=== PATIENT | female | born 1975 | race Caucasian/White ===

== ENCOUNTER 2017-01-25 20:27 | Emergency (ER) | payer SELFPAY ==
[~2017-01-25] VITALS: Ht 170.2 cm; Wt 81.0 kg
[~2017-01-25 20:27] MED LIST: ARIP10TA9 PO; CYCL-331 PO; HYDR1TAB10 PO; NAPR-683 PO; SULF1TAB24 PO
[2017-01-25] MEDS ORDERED: IV NORMAL SALINE 1,000ML 1,000 ML IV SCH (21:30)
[2017-01-25] MEDS ORDERED: ONDANSETRON PF 4 MG/2 ML VIAL. IV ONE (22:00)
[2017-01-25 23:10] LABS: BASO % 0 % (0-3); EOS # 0.4 x10^3/uL (0.0-0.7); EOS % 2 % (0-3); HEMATOCRIT 37.7 % (36.0-47.0); LYMPH # 3.1 x10^3/uL (1.0-4.8); LYMPH % 21 % (24-48); MEAN CORPUSCULAR HEMOGLOBIN 32 pg (25-35); MEAN CORPUSCULAR HGB CONC 34 g/dL (31-37); MEAN CORPUSCULAR VOLUME 92 fL (79-100); MONO # 0.9 x10^3/uL (0.0-1.1); MONO % 6 % (0-9); NEUT # 10.5 x10^3uL (1.8-7.7); NEUT % 71 % (31-73); PLATELET COUNT 377 x10^3/uL (140-400); RED BLOOD COUNT 4.09 x10^6/uL (3.50-5.40); RED CELL DISTRIBUTION WIDTH 13.4 % (11.5-14.5); WHITE BLOOD COUNT 14.9 x10^3/uL (4.0-11.0)
[2017-01-25 23:21] LABS: AMPHETAMINE/METHAMPHETAMINE POS (NEG); BARBITURATES NEG (NEG); BENZODIAZEPINES NEG (NEG); CANNABINOIDS POS (NEG); COCAINE NEG (NEG); METHADONE NEG (NEG); OPIATES POS (NEG); PHENCYCLIDINE NEG (NEG)
[2017-01-25 23:25] LABS: ALBUMIN 2.8 g/dL (3.4-5.0); ALBUMIN/GLOBULIN RATIO 0.8 (1.0-1.7); CALCIUM 8.4 mg/dL (8.5-10.1); GFR 61.4; TOTAL BILIRUBIN 0.1 mg/dL (0.2-1.0); TOTAL PROTEIN 6.5 g/dL (6.4-8.2)
[2017-01-25 23:31] LABS: COLOR,URINE YELLOW
[2017-01-25 23:32] LABS: AMORPHOUS SEDIMENT,UR PRESENT /HPF; BACTERIA,URINE MOD /HPF (0-FEW); BILIRUBIN,URINE NEG (NEG); CLARITY,URINE CLOUDY; GLUCOSE,URINE NEG (NEG); NITRITE,URINE POS (NEG); RBC,URINE 0 /HPF (0-2); SQUAMOUS EPITHELIAL CELL,UR OCC /LPF; UROBILINOGEN,URINE 0.2 mg/dL (0.2 mg/dL); WBC,URINE OCC /HPF (0-4)
[2017-01-26] MEDS ORDERED: IV NORMAL SALINE 1,000ML 1,000 ML IV SCH (00:30)
[2017-01-26] MEDS ORDERED: CLINDAMYCIN 900MG PREMIX 50 ML IV ONE (00:30)
[2017-01-26] MEDS ORDERED: KETOROLAC 30 MG/ML VIAL. IV ONE (00:30)
[2017-01-26] MEDS ORDERED: ONDA4TAB10 PO (00:44)
[2017-01-26] MEDS ORDERED: CLIN300C8 PO (00:44)
[2017-01-26 00:55] VITALS: BP 129/84
--- NOTE | 2017-01-26 00:58 | PHYS DOC ---
General Chief Complaint: INSECT BITE Stated Complaint: INSECT BITE, NAUSEA Time Seen by MD: 20:31 Source: patient Exam Limitations: clinical condition, intoxication Problems: History of Present Illness Initial Comments Patient is a 41-year-old female who comes to the ED complaining of an insect bite. On arrival patient appears to be altered as if intoxicated. No EtOH odor patient denies any substance abuse. She is drowsy and somewhat lethargic slurring words but oriented 3 remaining awake and in no distress. Patient is a poor/vague historian, she is uncertain how long ago she first noticed any abnormal findings on her right leg. She is able to recall that it started off as a vesicle which over time did drain some "pus" and then fell off. " Now there is a hole in my leg and it just keeps getting bigger." She states that at times it is painful also stating she has whole body pain, and complains of some nausea no vomiting. A friend is with her states she has had decreased energy the past few days. I specifically stated to the patient that she appeared to be altered and question her as to whether or not she had taken anything prior to coming to the emergency department. She adamantly denied taking any prescription or illicit substances recently and outside of my presence did admit to the RN that she uses marijuana. ED vital signs are normal. Tetanus status is reportedly up-to-date. Onset: other (uncertain) Severity: moderate Pain/Injury Location: right leg Method of Injury: unknown (patient assumes insect bite) Modifying Factors: worse with jarring, worse with movement, improves with rest Allergies: Coded Allergies: Penicillins (Unverified Allergy, Intermediate, rash, 05/31/14) Past Medical History Medical History: other (GERD, anxiety) Surgical History: noncontributory, other Family History Significant Family History: no pertinent family hx Social History Smoker: cigarettes Alcohol: occasionally Drugs: marijuana Review of Systems Constitutional: denies chills, denies diaphoresis, denies fever, malaise Respiratory: denies cough, denies shortness of breath, denies wheezing Cardiovascular: denies chest pain, denies palpitations, denies syncope Gastrointestinal: denies abdominal pain, denies diarrhea, nausea, denies vomiting Genitourinary: denies discharge, denies dysuria, denies frequency, denies hematuria Musculoskeletal: see HPI Skin: see HPI Psychiatric/Neurological: denies numbness, denies paresthesia, denies seizure, denies tingling, denies weakness Physical Exam General Appearance: no apparent distress (appears very relaxed and drowsy, disheveled) HEENT: PERRL/EOMI, normal ENT inspection, pharynx normal Neck: non-tender, supple Cardiovascular/Respiratory: regular rate, rhythm, normal peripheral pulses, normal breath sounds, no respiratory distress Back: no CVA tenderness, no vertebral tenderness Legs: right leg other (lateral aspect of the distal right upper le.5 cm ulceration approximately 1 cm in depth with 1 cm halo of erythema at the border no discharge consistent with probable brown recluse spider bite. The area is tender and slightly warm nonfluctuant no foreign bodies and no involvement of the right knee joint itself. Appears to extend into the muscle layer) Neurologic/Tendon: normal sensation, normal motor functions, normal tendon functions, responds to pain, no evidence tendon injury Psychiatric: alert, oriented x 3, lethargic (appears altered or intoxicated) Skin: normal color, warm/dry (right leg as described above) Orders, Labs, Meds Great difficulty obtaining intravenous access as well as blood specimens. Upper extremity venous structures are grossly scarred and fibrotic and have the appearance of repeated intravenous access likely for drug abuse. Lab evaluation to rule out coagulopathy as well as hemolytic anemia or sepsis secondary to brown recluse spider bite fairly unremarkable. Hemoglobin 13, white blood cells 14.9, PT 12.2 otherwise coagulation studies normal and d- dimer 1.15 likely resultant from ulceration tissue damage itself. Urine drug screen positive for opiates, methamphetamine, and cannabinoids The patient will need surgical removal of the ulceration, [facility] contact information given to the patient. She was advised to discontinue substance abuse and clindamycin given empirically. Signs and symptoms to monitor as well as urgent indications to return to the department discussed and the patient's questions were answered she expressed understanding of the treatment plan. Impressions: Altered mental status/intoxication Right leg wound consistent with probable brown recluse spider bite. Elevated d-dimer likely second above Methamphetamine, opiates, and cannabinoids abuse. Departure Time of Disposition: 00:55 Disposition: 01 HOME, SELF-CARE Diagnosis: probable brown recluse bite RLE, methamph/marijuan Condition: STABLE Patient Instructions: Brown Recluse Spider Bite, Epni-ps-Nbpt, Marijuana Abuse and Chemical Dependency, Methamphetamine Abuse, Complications Additional Instructions: Please review the patient education materials given by ED staff. Discontinue substance abuse, seek medical assistance if necessary. Aggressive hydration with Gatorade or water. [id number] Tylenol and ibuprofen as needed. Prescription: Clindamycin You will need to follow-up with an orthopedic surgeon. You may choose to follow- up with: [facility] [phone] call Friday to schedule next available appointment. Return to ED with new or changing symptoms. GAYATRI ARROYO DO Jan 26, 2017 00:58
== END 2017-01-26 01:00 | disposition home or self-care (01) ==
LOC: ER 20:27
DX: F15.10 Other stimulant abuse, uncomplicated (principal); S80.861A Insect bite (nonvenomous), right lower leg, initial encounter; F12.10 Cannabis abuse, uncomplicated; F17.210 Nicotine dependence, cigarettes, uncomplicated; K21.9 Gastro-esophageal reflux disease without esophagitis; F41.9 Anxiety disorder, unspecified; W57.XXXA Bitten or stung by nonvenomous insect and other nonvenomous arthropods, initial encounter; Y93.89 Activity, other specified; Y99.8 Other external cause status; Y92.89 Other specified places as the place of occurrence of the external cause
CPT/HCPCS: 36415; 80053; 80307; 81001; 82550; 83605; 85025; 85379; 85610; 85730; 87040; 87086; 87186; 96361; 96365; 96375; 99285; G0480; J1885; J2405; J3490; G0479; J7030

== ENCOUNTER 2017-07-25 13:52 | Inpatient (IN) | payer SELFPAY ==
[~2017-07-25] VITALS: Ht 170.2 cm; Wt 80.3 kg
[~2017-07-25 13:52] MED LIST changes: +CLIN300C8 PO; +ONDA4TAB10 PO
[2017-07-25] MEDS ORDERED: VANCOMYCIN PER PHARMACY MC PRN (14:45)
[2017-07-25] MEDS ORDERED: VANCOMYCIN 2 GM in IV NORMAL SALINE 500ML 500 ML IV ONE (15:00)
[2017-07-25] MEDS ORDERED: IV NORMAL SALINE 1,000ML 1,000 ML IV ONE (15:00)
--- NOTE | 2017-07-25 15:00 | RAD ---
EXAM: CHEST 1 VIEW History: Chest pain, leg swelling, redness COMPARISON: 06/21/2008 TECHNIQUE: Single portable radiograph of the chest FINDINGS: The cardiac silhouette is unremarkable. The lungs are clear bilaterally. The costophrenic sulci are clear and well demarcated. IMPRESSION: No radiographic evidence of an acute cardiopulmonary process. Electronically signed by: Ovidio Lindsay MD (07/25/2017 2:56 PM) [id number]
--- NOTE | 2017-07-25 15:41 | EKG ---
[address] [address] Test Date: 2017-07-25 Test Time: 15:35:48 Pat Name: LISBET HERRERA Department: Room: Gender: F Relish Maker: LIZETH : 1975 Requested By: GERARD REED Order Number: [id number] Reading MD: Measurements Intervals [place] Rate: 72 P: 21 WY: 116 QRS: -6 QRSD: 82 T: 8 QT: 374 QTc: 411 Interpretive Statements SINUS RHYTHM LEFTWARD AXIS QRS(T) CONTOUR ABNORMALITY CONSIDER ANTEROLATERAL MYOCARDIAL DAMAGE POSSIBLY ABNORMAL ECG RI6.01 No previous ECG available for comparison
--- NOTE | 2017-07-25 16:06 | RAD ---
Right lower extremity venous doppler ultrasound Indication: Right leg redness and swelling. Technique: Color Doppler, grayscale, and spectral waveform analysis is used to evaluate the right femoral and popliteal veins. Findings: No evidence of deep venous thrombosis. Normal response to augmentation, normal compressibility and normal phasicity is demonstrated. Visualized calf veins are patent. Additional scanning performed at the area of more severe focal pain in the medial calf. No focal fluid collection identified here. There is soft tissue edema. Lymph nodes are identified in the groin and upper thigh on the right. Impression: Negative for deep venous thrombosis Electronically signed by: Joselito Lozano MD (07/25/2017 4:03 PM) [facility]
--- NOTE | 2017-07-25 16:22 | PHYS DOC ---
Past History Past Medical History: Anxiety, GERD, Other Past Surgical History: Tubal ligation, Other Alcohol Use: Rarely Drug Use: Cocaine, Marijuana, Methamphetamine Adult General Chief Complaint Chief Complaint: LOWER EXT PAIN HPI HPI Patient is a 41 YO F WITH RIGHT LEG PAIN AND SWELLING SUBJECTIVE FEVER PAIN SEVERE DULL RIGHT CALF AREA RADIATES TO FOOT SHE SHOT METHAMPHETAMINE IN THE AREA LAST WEEK AND HAS HAD WORSENING SYMTPOMS X ONE WEEK. ALSO WOKE UP TODAY WITH A COUGH AND SOME CHEST PAIN ON THE RIGHT DESCRIBED "MY PLEURISY ACTING UP AGAIN" PT DOES NOT HAVE INSURANCE OR FOLLOW UP. Review of Systems Review of Systems Constitutional: SUBJECTIVE FEVER Eyes: Denies change in visual acuity, redness, or eye pain [] HENT: Denies nasal congestion or sore throat [] Respiratory: COUGH, NO SOB Cardiovascular: No additional information not addressed in HPI [] GI: NAUSEA All other systems were reviewed and found to be within normal limits, except as documented in this note. Current Medications Current Medications Current Medications Medications (Trade) Dose Ordered Sig/Char Start Time Stop Time Status Last Admin Dose Admin Fentanyl Citrate (Fentanyl 2ml Vial) 50 mcg 1X ONCE 07/25/17 15:00 07/25/17 15:01 DC Sodium Chloride 1,000 ml @ 1,000 mls/hr 1X ONCE 07/25/17 15:00 07/25/17 15:59 DC Vancomycin HCl (Vanco Per Pharmacy) 1 each PRN DAILY PRN 07/25/17 14:45 Vancomycin HCl 2 gm/Sodium Chloride 500 ml @ 250 mls/hr 1X ONCE 07/25/17 15:00 07/25/17 16:59 Allergies Allergies Allergies Coded Allergies Type Severity Reaction Last Updated Verified Penicillins Allergy Intermediate rash 07/25/17 No Physical Exam Physical Exam Constitutional: Well developed, well nourished, no acute distress, non-toxic appearance. [] HENT: Normocephalic, atraumatic, bilateral external ears normal, oropharynx moist, no oral exudates, nose normal. [] Eyes: PERRLA, EOMI, conjunctiva normal, no discharge. [] Neck: Normal range of motion, no tenderness, supple, no stridor. [] Cardiovascular: Mild tachycardia no murmurs noted Lungs & Thorax: Bilateral breath sounds clear to auscultation []there is mild chest wall tenderness to palpation noted on the right Abdomen: Bowel sounds normal, soft, no tenderness, no masses, no pulsatile masses. [] Skin: There is diffuse erythema tenderness warmth and induration of the right lower extremity from the mid calderon down to the foot. Pedal pulses intact. There is most prominent erythema medial aspect of the right O there is no obvious fluctuance there Back: No tenderness, no CVA tenderness. [] Extremities: No tenderness, no cyanosis, no clubbing, ROM intact, no edema. [] Neurologic: Alert and oriented X 3, normal motor function, normal sensory function, no focal deficits noted. [] Psychologic: Affect normal, judgement normal, mood normal. [] Current Patient Data Vital Signs Vital Signs Date Time Temp Pulse Resp B/P (MAP) Pulse Ox O2 Delivery O2 Flow Rate FiO2 07/25/17 13:52 98.1 97 16 99 Room Air EKG EKG []EKG shows a normal sinus rhythm at a rate of 72 there are no acute ischemic changes noted interpreted by me the time of encounter Radiology/Procedures Radiology/Procedures OMPARISON: 06/21/2008 TECHNIQUE: Single portable radiograph of the chest FINDINGS: The cardiac silhouette is unremarkable. The lungs are clear bilaterally. The costophrenic sulci are clear and well demarcated. IMPRESSION: No radiographic evidence of an acute cardiopulmonary process. Electronically signed by: Ovidio Lindsay MD (07/25/2017 2:56 PM) [id number] [] Impressions: Technique: Color Doppler, grayscale, and spectral waveform analysis is used to evaluate the right femoral and popliteal veins. Findings: No evidence of deep venous thrombosis. Normal response to augmentation, normal compressibility and normal phasicity is demonstrated. Visualized calf veins are patent. Additional scanning performed at the area of more severe focal pain in the medial calf. No focal fluid collection identified here. There is soft tissue edema. Lymph nodes are identified in the groin and upper thigh on the right. Impression: Negative for deep venous thrombosis Electronically signed by: Joselito Lozano MD (07/25/2017 4:03 PM) [facility] DICTATED AND SIGNED BY: JOSELITO LOZANO MD DATE: 07/25/17 3744 Course & Med Decision Making Course & Med Decision Making Pertinent Labs and Imaging studies reviewed. (See chart for details) []41-year-old female with a history of IV drug abuse who shot methamphetamine into her right leg several days ago who is presenting with cellulitis of the right lower extremity. Ultrasound was negative for DVT also of note there was no focal fluid collection identified on the ultrasound. Due to this I think we should start with IV antibiotics and ADMIT. Blood cultures were ordered IV vancomycin as well fentanyl for pain LEUKOCYTOSIS NOTED BP IS GOOD D/W DOROTEO ADMIT FOR IV ABX. Dragon Disclaimer Dragon Disclaimer This electronic medical record was generated, in whole or in part, using a voice recognition dictation system. Departure Departure: Impression: Primary Impression: Cellulitis of right lower extremity Disposition: ADMITTED INPATIENT Condition: STABLE Referrals: PCP,KRISTI (PCP) GERARD REED MD Jul 25, 2017 16:22
[2017-07-25 16:27] LABS: BASO # 0.2 x10^3/uL (0.0-0.2); BASO % 1 % (0-3); EOS # 0.5 x10^3/uL (0.0-0.7); EOS % 3 % (0-3); HEMATOCRIT 37.4 % (36.0-47.0); HEMOGLOBIN 12.8 g/dL (12.0-15.5); LYMPH # 2.6 x10^3/uL (1.0-4.8); LYMPH % 18 % (24-48); MEAN CORPUSCULAR HEMOGLOBIN 32 pg (25-35); MEAN CORPUSCULAR HGB CONC 34 g/dL (31-37); MEAN CORPUSCULAR VOLUME 92 fL (79-100); MONO # 1.1 x10^3/uL (0.0-1.1); MONO % 8 % (0-9); NEUT # 9.7 x10^3uL (1.8-7.7); NEUT % 69 % (31-73); PLATELET COUNT 324 x10^3/uL (140-400); RED BLOOD COUNT 4.06 x10^6/uL (3.50-5.40); RED CELL DISTRIBUTION WIDTH 13.5 % (11.5-14.5); WHITE BLOOD COUNT 14.1 x10^3/uL (4.0-11.0)
[2017-07-25 16:40] LABS: ALBUMIN 2.7 g/dL (3.4-5.0); ALBUMIN/GLOBULIN RATIO 0.7 (1.0-1.7); CALCIUM 8.3 mg/dL (8.5-10.1); CREATININE 0.9 mg/dL (0.6-1.0); GFR 69.3; POTASSIUM 3.9 mmol/L (3.5-5.1); TOTAL BILIRUBIN 0.2 mg/dL (0.2-1.0); TOTAL PROTEIN 6.4 g/dL (6.4-8.2)
[2017-07-25 18:10] VITALS: BP 135/91
[2017-07-25] MEDS ORDERED: diphenhydrAMINE 50 MG/ML VIAL IVP ONE (18:45)
[2017-07-25] MEDS ORDERED: diphenhydrAMINE HCL 25 MG CAPSULE PO PRN (18:45)
[2017-07-25] MEDS ORDERED: HYDROCORTISONE SOD SUCC/PF 100 MG/2 ML VIAL. IV ONE ×2 (18:45)
[2017-07-25] MEDS: IV NORMAL SALINE 1,000ML 1,000 ML IV SCH (19:40)
--- NOTE | 2017-07-25 19:40 | HP ---
ADMIT DATE: 07/25/2017 HISTORY OF PRESENT ILLNESS: The patient is a 41-year-old female patient who came to the Emergency Room complaining of right leg pain, swelling and redness and subjective fever. The pain is severe, dull, and involving the right calf area, radiating down to the foot. She shot methamphetamine in the area last week and has had worsening symptoms for 1 week now. She also woke up this morning with a cough and some chest pain ____ acting up again. She was extensively investigated in the Emergency Room, was found to have leukocytosis. Her chest x-ray was unremarkable and she has had Doppler ultrasound of the right lower extremity, which was negative. The patient was admitted with cellulitis of the right lower extremity, polysubstance abuse and she has history of hepatitis C. PAST MEDICAL HISTORY: Significant for, 1. Hepatitis C. 2. Polysubstance abuse including methamphetamine and cocaine. PAST SURGICAL HISTORY: Significant for left knee arthroscopic surgery for ACL rupture. ALLERGIES: SHE IS ALLERGIC TO PENICILLIN. MEDICATIONS: She is normally on no medication except [id number] ibuprofen. FAMILY HISTORY: She has 2 brothers older and 1 younger. One sister she does not know. Her father at the age of 67 because of stomach cancer and mother is still alive and healthy. SOCIAL HISTORY: She is and has 3 daughters and one son. She continued to smoke cigarettes, does not drink alcohol, and uses methamphetamine and cocaine, has been using it for a long time. REVIEW OF SYSTEMS: As per history of present illness. PHYSICAL EXAMINATION: GENERAL: When examining her, the patient started itching severely and turning red as the vancomycin was infusing; however, the patient has no pallor, jaundice, cyanosis or thyromegaly. No jugular venous distension. No lower limb edema. VITAL SIGNS: Her heart rate was 89, blood pressure 135/91, temperature was 97.8, respiratory rate 20, and oxygen saturation was 99% on room air. HEENT: Normocephalic, atraumatic. NECK: Supple. HEART: Showed normal first and second sounds. No gallop, rub or murmur. CHEST: Clear to auscultation. No crepitation or rhonchi. ABDOMEN: Distended, soft, nontender. NEUROLOGIC: She is awake, alert, responding appropriately. Cranial nerves intact. He moves extremities without difficulty. She ambulates without assistance or assistive devices. EXTREMITIES: Showed no clubbing or cyanosis. She has marked redness, swelling and tenderness of her right leg compared to the left. LABORATORY DATA: Showed a white cell count of 14,100, hemoglobin 12.8, hematocrit 37.4, MCV 92, and platelet count 324,000. Her chemistry showed a serum sodium 141, potassium 3.9, chloride 105, bicarbonate 31, anion gap of 5, BUN 11, creatinine 0.9, estimated GFR was 69 mL per minute. Her glucose 111, calcium was 8.3. Total bilirubin, AST, ALT, alkaline phosphatase were normal. Her total protein was 6.4, albumin was 2.7. Her test was negative. She did have a chest x-ray which was unremarkable which showed no radiographic evidence of an acute cardiopulmonary process and her venous Doppler ultrasound was negative for deep vein thrombosis. ASSESSMENT AND PLAN: Unfortunately, the patient has allergic reaction as she was turning red in front of me, so we will treat her with Benadryl and hydrocortisone and probably switch the antibiotic to Zyvox at least initially. LOTTIE SADLER MD DR: YAA/phill JOB#: [id number] / [id number]
[2017-07-25] MEDS ORDERED: LACTOBACILLUS RHAMNOSUS GG 1 CAPSULE. PO SCH (21:00)
[2017-07-25] MEDS: HYDROCORTISONE SOD SUCC/PF 100 MG/2 ML VIAL. IV SCH (21:20)
[2017-07-25] MEDS: CLINDAMYCIN 600MG PREMIX 50 ML IV SCH (21:21)
[2017-07-25 22:14] VITALS: BP 123/86
[2017-07-26] MEDS: IV NORMAL SALINE 1,000ML 1,000 ML IV SCH (00:05)
[2017-07-26] MEDS ORDERED: VANCOMYCIN 1.25 GM in IV NORMAL SALINE 250ML 250 ML IV SCH (05:00)
[2017-07-26] MEDS: CLINDAMYCIN 600MG PREMIX 50 ML IV SCH (05:06)
[2017-07-26] MEDS: HYDROCORTISONE SOD SUCC/PF 100 MG/2 ML VIAL. IV SCH (05:07)
[2017-07-26 05:16] VITALS: BP 122/79
== END 2017-07-26 07:45 | disposition left against medical advice (07) | DRG 603 ==
LOC: ER 13:52 → 1 SOUTH 16:40
PROVIDERS: ADMIT Internal Medicine; ATTEND Internal Medicine
DX: L03.115 Cellulitis of right lower limb (principal); K21.9 Gastro-esophageal reflux disease without esophagitis; F41.9 Anxiety disorder, unspecified; F17.210 Nicotine dependence, cigarettes, uncomplicated; B19.20 Unspecified viral hepatitis C without hepatic coma; F15.10 Other stimulant abuse, uncomplicated; F14.10 Cocaine abuse, uncomplicated; T78.40XA Allergy, unspecified, initial encounter; X58.XXXA Exposure to other specified factors, initial encounter; Z98.51 Tubal ligation status; Z88.0 Allergy status to penicillin; Z80.0 Family history of malignant neoplasm of digestive organs
CPT/HCPCS: 36415; 71045; 80053; 84702; 85025; 87040; 93005; 93971; 96365; 96375; J1200; J3010; J3370; J3490; J7040; Q0163; 99285-25; J7030

== ENCOUNTER 2017-08-02 00:48 | Inpatient (IN) | payer SELFPAY ==
[~2017-08-02] VITALS: Ht 170.2 cm; Wt 86.0 kg
--- NOTE | 2017-08-02 00:54 | ED.ADGEN ---
Past History Past Medical History: Anxiety, GERD, Other Past Surgical History: Tubal ligation, Other Smoking: Cigarettes Alcohol Use: Rarely Drug Use: Cocaine, Marijuana, Methamphetamine Adult General Chief Complaint Chief Complaint " I should have stayed the other day... but did not.. and now my leg is much worse...hurts and swollen... and my Lt hand is swollen.. I have not used any drugs for two days... I should have stayed..." HPI HPI Patient is a 42 year old female who presents with above hx and complaints of cellulitis and edema complaints of Lt. hand and Rt. leg. Patient also complaints of some generalized chest pain. Subjective fever and chills. Patient has history of hepatitis. Patient denies history of HIV.. Pt. previously admitted for tx of her cellulitis, but left AMA on 07/25. Pt. states Tetanus is up to date as of one year ago. Pt. does have a history of IV polysubstance abuse. Patient does have a history of MRSA. Patient denies any history of travel or specific ill contacts. Review of Systems Review of Systems Constitutional: Complaints of fever or chills [] Eyes: Denies change in visual acuity, redness, or eye pain [] HENT: Denies nasal congestion or sore throat [] Respiratory: Denies cough or shortness of breath [] Cardiovascular: No additional information not addressed in HPI [] GI: Denies abdominal pain, nausea, vomiting, bloody stools or diarrhea [] : Denies dysuria or hematuria [] Musculoskeletal: Denies back pain or joint pain. Pt. complaints of right leg pain and left hand pain Integument: Complaints of rash or skin lesions [] Neurologic: Denies headache, focal weakness or sensory changes [] Endocrine: Denies polyuria or polydipsia [] All other systems were reviewed and found to be within normal limits, except as documented in this note. Family History Family History Non-contributory Current Medications Current Medications See Nursing for home meds. Allergies Allergies Allergies Coded Allergies Type Severity Reaction Last Updated Verified vancomycin Allergy Severe 07/25/17 Yes Penicillins Allergy Intermediate rash 07/25/17 No Physical Exam Physical Exam Constitutional: Moderately acute distress, non-toxic appearance. [] HENT: Normocephalic, atraumatic, bilateral external ears normal, oropharynx moist, no oral exudates, nose normal. [] Eyes: PERRLA, EOMI, conjunctiva normal, no discharge. [] Neck: Normal range of motion, no tenderness, supple, no stridor. [] Cardiovascular:Heart rate regular rhythm, no murmur [] Lungs & Thorax: Bilateral breath sounds scattered wheezes on auscultation [] Abdomen: Bowel sounds normal, soft, no tenderness, no masses, no pulsatile masses. [] Skin: Warm, dry, no erythema, no rash. [] Except cellulitis in Rt. calf and Lt arm. Multiple old IV scars. Back: No tenderness, no CVA tenderness. [] Extremities: No tenderness, no cyanosis, no clubbing, ROM intact, Lt. hand and Rt leg edema. [] Neurologic: Alert and oriented X 3, normal motor function, normal sensory function, no focal deficits noted. [] Psychologic: Affect anxious, judgement normal, mood depressed. ] Current Patient Data Vital Signs Vital Signs Date Time Temp Pulse Resp B/P (MAP) Pulse Ox O2 Delivery O2 Flow Rate FiO2 08/02/17 00:50 98.4 90 20 99 Room Air EKG EKG I interpretation of EKG shows a sinus rhythm at 87 bpm. No findings of acute morphology.[] Radiology/Procedures Radiology/Procedures My interpretation of chest x-ray shows no large infiltrate or acute cardio pulmonary changes.. Chest x-ray morphology is similar to chest x-ray on 2017 is cardiomegaly[] Course & Med Decision Making Course & Med Decision Making Pertinent Labs and Imaging studies reviewed. (See chart for details)- Lt. Ext/- J placement- Indications-Multiple sticks for IV by multiple nurses. Unable to get IV or lab draw- Pt. Lt Ext. Jugular - prepped with repeat cleaning with alcohol swabs. Pt placed in declined position and external jugular identified and placed a 20- gauge Angiocath. Labs collected. OpSite placed. Discussed presentation, testing and tx. plan with Dr. Evans- will admit for further eval and tx. [] Final Impression Final Impression 1. Chest Pain 2. Cellulitis 3. Hx of Polysubstance Abuse[] 4. Hx. of Hept. C 5. Hx. of Anxiety Disorder 6. Leukocytosis 7. Malnutrition 8. Elevated D-dimer Dragon Disclaimer Dragon Disclaimer This electronic medical record was generated, in whole or in part, using a voice recognition dictation system. CHRIS HOPE MD Aug 02, 2017 00:54
[2017-08-02] MEDS ORDERED: ASPIRIN 81 MG TAB.CHEW PO ONE (01:45)
[2017-08-02] MEDS ORDERED: IV RINGERS SOLUTION,LACTATED 1,000 ML IV SCH ×2 (01:45→09:00)
[2017-08-02] MEDS ORDERED: ENOXAPARIN ** NOTE DOSE ** SYRINGE SQ ONE (01:45)
[2017-08-02] MEDS ORDERED: KETOROLAC 60 MG/2 ML VIAL. IM ONE (01:45)
[2017-08-02] MEDS ORDERED: cefTRIAXone IM 1 GM VIAL IM ONE (01:45)
[2017-08-02 02:32] LABS: BARBITURATES NEG (NEG); BENZODIAZEPINES NEG (NEG); CANNABINOIDS POS (NEG); COCAINE NEG (NEG); METHADONE NEG (NEG); OPIATES NEG (NEG); PHENCYCLIDINE NEG (NEG)
[2017-08-02 02:41] LABS: BILIRUBIN,URINE NEG (NEG); CLARITY,URINE HAZY; COLOR,URINE YELLOW; GLUCOSE,URINE NEG (NEG)
[2017-08-02 02:42] LABS: BASO # 0.2 x10^3/uL (0.0-0.2); BASO % 1 % (0-3); EOS # 0.8 x10^3/uL (0.0-0.7); EOS % 6 % (0-3); HEMATOCRIT 40.4 % (36.0-47.0); LYMPH # 3.1 x10^3/uL (1.0-4.8); LYMPH % 21 % (24-48); MEAN CORPUSCULAR HEMOGLOBIN 32 pg (25-35); MEAN CORPUSCULAR HGB CONC 35 g/dL (31-37); MEAN CORPUSCULAR VOLUME 91 fL (79-100); MONO # 1.1 x10^3/uL (0.0-1.1); MONO % 8 % (0-9); NEUT # 9.5 x10^3uL (1.8-7.7); NEUT % 65 % (31-73); PLATELET COUNT 413 x10^3/uL (140-400); RED BLOOD COUNT 4.44 x10^6/uL (3.50-5.40); RED CELL DISTRIBUTION WIDTH 13.4 % (11.5-14.5); WHITE BLOOD COUNT 14.7 x10^3/uL (4.0-11.0)
[2017-08-02 02:42] LABS: BACTERIA,URINE FEW /HPF (0-FEW); NITRITE,URINE NEG (NEG); RBC,URINE OCC /HPF (0-2); SQUAMOUS EPITHELIAL CELL,UR FEW /LPF; UROBILINOGEN,URINE 0.2 mg/dL (0.2 mg/dL); WBC,URINE OCC /HPF (0-4)
[2017-08-02 02:51] LABS: ALBUMIN 2.7 g/dL (3.4-5.0); ALK PHOS 108 U/L (46-116); ALT (SGPT) 16 U/L (14-59); ANION GAP 8 (6-14); AST (SGOT) 11 U/L (15-37); BLOOD UREA NITROGEN 10 mg/dL (7-20); CALCIUM 8.1 mg/dL (8.5-10.1); CARBON DIOXIDE 28 mmol/L (21-32); CHLORIDE 105 mmol/L (98-107); DIRECT BILIRUBIN < 0.1 mg/dL (0.0-0.2); GFR 61.1; GLUCOSE 88 mg/dL (70-99); LIPASE 167 U/L (73-393); MAGNESIUM 2.1 mg/dL (1.8-2.4); POTASSIUM 3.8 mmol/L (3.5-5.1); SODIUM 141 mmol/L (136-145); TOTAL BILIRUBIN 0.2 mg/dL (0.2-1.0); TOTAL PROTEIN 6.6 g/dL (6.4-8.2)
[2017-08-02 02:51] LABS: AMPHETAMINE/METHAMPHETAMINE POS (NEG)
[2017-08-02] MEDS ORDERED: KETOROLAC 30 MG/ML VIAL. IM PRN (03:30)
[2017-08-02 04:10] VITALS: BP 132/99
[2017-08-02] MEDS: LORazepam 0.5 MG TABLET PO PRN ×3 (08:03→23:01)
[2017-08-02] MEDS: NICOTINE 21MG PATCH. TD SCH (08:06)
--- NOTE | 2017-08-02 08:28 | RAD ---
AP portable chest radiograph 08/02/2017 Clinical History: Chest pain. An AP erect portable digital radiograph of the chest was obtained. Comparison study is dated 07/25/2017. The cardiac and mediastinal silhouettes are within normal limits in size and configuration. No acute pulmonary infiltrate is seen. No pleural effusion or pneumothorax is noted. The osseous structures are unchanged. Impression: No acute abnormality is seen. Electronically signed by: Eric Huynh MD (08/02/2017 8:24 AM) [facility]
[2017-08-02] MEDS ORDERED: cefTRIAXone IM 1 GM VIAL IM SCH (09:00)
[2017-08-02] MEDS: ASPIRIN 81 MG TAB.CHEW PO SCH (09:10)
[2017-08-02] MEDS: LACTOBACILLUS RHAMNOSUS GG 1 CAPSULE. PO SCH ×2 (09:10→21:13)
[2017-08-02] MEDS: ENOXAPARIN ** NOTE DOSE ** SYRINGE SQ SCH ×2 (09:11→21:14)
[2017-08-02] MEDS: KETOROLAC 30 MG/ML VIAL. IV PRN ×3 (09:39→23:01)
[2017-08-02 12:25] VITALS: BP 142/99
--- NOTE | 2017-08-02 13:01 | RAD ---
Right lower extremity venous duplex study 08/02/2017 Clinical History: Right leg swelling. Technique: Using a combination of real time ultrasound imaging and color-flow and pulse Doppler imaging techniques along with graded compression and augmentation, duplex evaluation of the deep venous system of the right lower extremity was performed. Multiple images were obtained. Findings: There is no sonographic evidence of deep venous thrombosis involving the visualized deep venous structures of the right lower extremity. Impression: Negative study. Electronically signed by: Eric Huynh MD (08/02/2017 12:57 PM) [facility]
--- NOTE | 2017-08-02 15:15 | RAD ---
NUCLEAR MEDICINE VENTILATION PERFUSION SCAN History: Chest pain, elevated d-dimer. Comparison: AP chest, earlier same day. Technique: Patient is ventilated with 13.7 mCi of xenon-133 gas and anterior and posterior initial breath-hold, equilibrium, and washout phase images of the lungs are acquired. Perfusion portion performed after intravenous administration of 5.4 mCi Technetium 99m MAA. Multiple projection planar images of the lungs were obtained. Findings: The initial breath-hold ventilation images demonstrated homogeneous distribution of tracer. No retention of tracer is appreciated on the washout phase images. Perfusion images demonstrate no mismatched segmental perfusion defects. There is nonsegmental linear defect noted on the perfusion RPO and LPO images. This defect is not seen on the other views. Question whether this may be artifactual. IMPRESSION: Low probability for pulmonary embolus. Electronically signed by: Farhat Hopkins MD (08/02/2017 3:12 PM) [facility] [place]
[2017-08-02] MEDS: oxyCODONE IR 5 MG TABLET PO PRN ×2 (15:23→21:31)
[2017-08-02 15:50] VITALS: BP 133/92
--- NOTE | 2017-08-02 16:05 | HP ---
ADMIT DATE: 08/02/2017 HISTORY OF PRESENT ILLNESS: The patient came again to the Emergency Room complaining of redness, swelling of her both upper extremities and right lower extremity. She left last time against medical advice to continue using her amphetamine claiming that she has not used any drugs for the last 2 days. She was evaluated in the Emergency Room, was again found to have leukocytosis and cellulitis of the right and left upper extremities and right lower extremity and apparently did receive IV Flagyl and ceftriaxone. I am not sure that this should cover all potential organisms. PAST MEDICAL HISTORY: Significant for hepatitis C, polysubstance abuse including amphetamine, methamphetamine and cocaine as well as marijuana. PAST SURGICAL HISTORY: Significant for left knee arthroscopic surgery for ACL rupture. ALLERGIES: She is allergic to PENICILLIN. MEDICATIONS: She is normally on no medication except [id number] ibuprofen. FAMILY HISTORY: She has 2 brothers older and 1 younger, 1 sister. She does not know her father at the age of 67 because of stomach cancer. Mother is still alive and healthy. SOCIAL HISTORY: She is , has 3 daughters and 1 son. She continued to smoke cigarette, does not drink alcohol or use methamphetamine; and cocaine, has been using it for a long time. REVIEW OF SYSTEMS: As per history of present illness. PHYSICAL EXAMINATION: GENERAL: On arrival to the Emergency Room, she looked well and was clearly in no apparent respiratory distress. VITAL SIGNS: Her heart rate was 90, blood pressure 163/82, temperature was 98.4, respiratory rate 20, and oxygen saturation was 99% on room air. HEAD, EYES, EARS, NOSE AND THROAT: Showed normocephalic, atraumatic. NECK: Supple. HEART: Showed normal first and second heart sounds. No gallop, rub or murmur. CHEST: Clear to auscultation. No crepitation or rhonchi. ABDOMEN: Distended, soft, nontender. NEUROLOGIC: She was awake, alert, responding appropriately. All cranial nerves intact. EXTREMITIES: She moves extremities without difficulty. SKIN: Showed that she has cellulitis of the right calf, left arm and multiple old IV scars. DIAGNOSTIC AND LABORATORY DATA: Her EKG showed that she was in sinus rhythm at 87 beats per minute with no finding of acute morphology. Her chest x-ray showed no lung infiltrate or acute cardiopulmonary disease. Her labs showed that her white cell count was 14,700, hemoglobin 14, hematocrit 40, MCV 91, and platelet count 413,000. Her chemistry showed serum sodium 141, potassium 3.8, chloride 105, bicarbonate 28, anion gap of 8, BUN 10, creatinine 1, estimated GFR was 61 mL per minute. Her glucose was 88, calcium was 8.1, magnesium was 2.1. Total bilirubin, AST, ALT, alkaline phosphatase were normal. Total protein was 6.6, albumin 2.7. TSH was 2.37. Her prothrombin time was 9.3, INR of 0.9, aPTT was 23. D-dimer was 1.99. Urinalysis was unremarkable. Toxic screen was positive for amphetamine, methamphetamine and cannabinoids. ASSESSMENT AND PLAN: In summary, this is a 42-year-old female patient who was admitted with cellulitis of her both upper extremities and left lower extremity, polysubstance abuse, history of hepatitis C, anxiety disorder, and did have chest pain and elevated D-dimer. She was treated with Lovenox, and arrangement has been made for her to have a Doppler ultrasound of both lower and upper extremities. Venous Doppler ultrasound of the right upper extremity showed no sonographic evidence of deep vein thrombosis involving the visualized deep venous structure of the right lower extremity. Her upper extremity ultrasound is still pending at the time of this dictation. My plan is to continue with IV fluid. LOTTIE SADLER MD DR: YAA/phill JOB#: [id number] / [id number]
[2017-08-02 19:00] VITALS: BP 146/97
--- NOTE | 2017-08-02 19:32 | RAD ---
EXAM: Left upper extremity venous Doppler sonogram. HISTORY: Left hand swelling. TECHNIQUE: Wilks scale and color Doppler sonographic evaluation of the left upper extremity veins with spectral waveform analysis was performed. FINDINGS: There is normal color flow, normal compressibility and there are normal spectral waveforms in the common left upper extremity veins and right subclavian vein. The left internal jugular vein could not be assessed due to an overlying bandage IMPRESSION: No Doppler evidence of upper extremity venous thrombosis, with nonassessment of the left internal jugular vein due to an overlying bandage. Electronically signed by: Adela Barrios MD (08/02/2017 7:28 PM) [id number]
--- NOTE | 2017-08-02 19:34 | EKG ---
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
[2017-08-02] MEDS: LINEZOLID 600 MG TABLET PO SCH (21:13)
[2017-08-02 22:00] VITALS: BP 128/90
[2017-08-03 05:59] VITALS: BP 132/76
[2017-08-03] MEDS: oxyCODONE IR 5 MG TABLET PO PRN ×2 (07:26→15:33)
[2017-08-03 09:11] LABS: BASO # 0.1 x10^3/uL (0.0-0.2); BASO % 1 % (0-3); EOS # 0.6 x10^3/uL (0.0-0.7); EOS % 9 % (0-3); HEMATOCRIT 42.3 % (36.0-47.0); HEMOGLOBIN 14.2 g/dL (12.0-15.5); LYMPH # 2.1 x10^3/uL (1.0-4.8); LYMPH % 28 % (24-48); MEAN CORPUSCULAR HEMOGLOBIN 32 pg (25-35); MEAN CORPUSCULAR HGB CONC 34 g/dL (31-37); MEAN CORPUSCULAR VOLUME 94 fL (79-100); MONO # 0.5 x10^3/uL (0.0-1.1); MONO % 6 % (0-9); NEUT # 4.3 x10^3uL (1.8-7.7); NEUT % 57 % (31-73); PLATELET COUNT 306 x10^3/uL (140-400); RED BLOOD COUNT 4.51 x10^6/uL (3.50-5.40); RED CELL DISTRIBUTION WIDTH 13.7 % (11.5-14.5); WHITE BLOOD COUNT 7.5 x10^3/uL (4.0-11.0)
[2017-08-03] MEDS: cefTRIAXone IV Push 1 GM VIAL. IVP SCH (09:12)
[2017-08-03] MEDS: ASPIRIN 81 MG TAB.CHEW PO SCH (09:15)
[2017-08-03] MEDS: LACTOBACILLUS RHAMNOSUS GG 1 CAPSULE. PO SCH ×2 (09:16→20:53)
[2017-08-03] MEDS: LINEZOLID 600 MG TABLET PO SCH ×2 (09:16→20:53)
[2017-08-03] MEDS: ENOXAPARIN ** NOTE DOSE ** SYRINGE SQ SCH (09:17)
[2017-08-03] MEDS: NICOTINE 21MG PATCH. TD SCH (09:19)
[2017-08-03] MEDS: KETOROLAC 30 MG/ML VIAL. IV PRN ×2 (09:34→17:04)
[2017-08-03 09:46] LABS: ALBUMIN 2.7 g/dL (3.4-5.0); ALBUMIN/GLOBULIN RATIO 0.8 (1.0-1.7); CALCIUM 7.9 mg/dL (8.5-10.1); CREATININE 0.9 mg/dL (0.6-1.0); POTASSIUM 4.2 mmol/L (3.5-5.1); TOTAL BILIRUBIN 0.1 mg/dL (0.2-1.0)
[2017-08-03 10:30] VITALS: BP 135/80
[2017-08-03 15:04] VITALS: BP 138/93
[2017-08-03] MEDS ORDERED: ONDANSETRON ODT 4 MG TAB.RAPDIS PO PRN (17:15)
[2017-08-03] MEDS: LORazepam 0.5 MG TABLET PO PRN ×2 (17:25→21:43)
[2017-08-03 20:00] VITALS: BP 143/94
[2017-08-03 22:00] VITALS: BP 129/82
[2017-08-04] MEDS: KETOROLAC 30 MG/ML VIAL. IV PRN ×2 (00:51→07:43)
[2017-08-04 06:01] VITALS: BP 137/89
[2017-08-04] MEDS: LINEZOLID 600 MG TABLET PO SCH (08:53)
[2017-08-04] MEDS: cefTRIAXone IV Push 1 GM VIAL. IVP SCH (08:53)
[2017-08-04] MEDS: ASPIRIN 81 MG TAB.CHEW PO SCH (08:53)
[2017-08-04] MEDS: LACTOBACILLUS RHAMNOSUS GG 1 CAPSULE. PO SCH (08:53)
[2017-08-04] MEDS: NICOTINE 21MG PATCH. TD SCH (08:55)
[2017-08-04] MEDS: oxyCODONE IR 5 MG TABLET PO PRN (08:57)
[2017-08-04] MEDS ORDERED: ENOXAPARIN 40 MG/0.4 ML SYRINGE. SQ SCH (09:00)
[2017-08-04 09:07] LABS: HEMATOCRIT 40.4 % (36.0-47.0); HEMOGLOBIN 13.8 g/dL (12.0-15.5); RED BLOOD COUNT 4.38 x10^6/uL (3.50-5.40); RED CELL DISTRIBUTION WIDTH 13.7 % (11.5-14.5)
[2017-08-04] MEDS: LORazepam 0.5 MG TABLET PO PRN (09:12)
[2017-08-04 09:42] LABS: CALCIUM 8.2 mg/dL (8.5-10.1); GFR 61.1; POTASSIUM 4.3 mmol/L (3.5-5.1)
[2017-08-04] MEDS ORDERED: CEPH-264 PO (10:22)
--- NOTE | 2017-08-04 11:10 | DS ---
DATE OF DISCHARGE: 08/04/2017 HOSPITAL COURSE: The patient is a 42-year-old female patient, who was readmitted again this time with cellulitis involving more her upper extremities as she continued to inject methamphetamine. She was evaluated, then she was here last week and left against medical advice, only to come back now with cellulitis of the right and left upper extremities and right lower extremity. She was started on Flagyl and ceftriaxone. We did blood cultures, both negative; however, the patient did well and responded. She has remained hemodynamically stable, afebrile, and her white cell count has normalized. Most of the redness and swelling has largely subsided and the patient is feeling well. We decided to discharge her home to continue treatment of antibiotic with a strong advice not to inject amphetamine anymore. PHYSICAL EXAMINATION: GENERAL: When I saw her this morning, she looked well and was clearly in no apparent respiratory distress, pale, but no jaundice, cyanosis or thyromegaly. No jugular venous distention. No lower limb edema. VITAL SIGNS: Her heart rate was 84, blood pressure 137/89, temperature was 98.4, respiratory rate 20, and oxygen saturation was 99% on room air. HEAD, EYES, EARS, NOSE AND THROAT: Showed normocephalic, atraumatic. NECK: Supple. HEART: Showed normal first and second heart sounds. No gallop, rub or murmur. CHEST: Clear to auscultation, crepitation or rhonchi. ABDOMEN: Distended, soft, nontender. NEUROLOGIC: She is awake, alert, responding appropriately. All cranial nerves intact. She ambulates without assistance or assistive devices. LABORATORY DATA: Her lab work this morning showed a white cell count of 9000, hemoglobin 13, hematocrit 40, MCV 92, and platelet count 365,000. Her chemistry showed a serum sodium 138, potassium 4.3, chloride 104, bicarbonate 27, anion gap of 7, BUN 11, creatinine 1, estimated GFR was 61 mL per minute. Her glucose 158, calcium was 8.2. Her D-dimer was high at 1.99; however, venous Doppler ultrasound and pulmonary ventilation perfusion scan were both negative. DISCHARGE MEDICATIONS: The patient was discharged home to continue on Keflex 500 mg 3 times a day for 1 week. FINAL DISCHARGE DIAGNOSES: Cellulitis involving both upper and right lower extremity. Other medical problems is polysubstance abuse including amphetamine, methamphetamine, cocaine and marijuana and chronic hepatitis C. LOTTIE SADLER MD DR: YAA/phill JOB#: [id number] / [id number]
[2017-08-04] MEDS ORDERED: metroNIDAZOLE 500 MG TABLET PO SCH (14:00)
[2017-08-05] MEDS ORDERED: CEFPODOXIME PROXETIL 100 MG TABLET PO SCH (09:00)
== END 2017-08-04 11:10 | disposition home or self-care (01) | DRG 603 ==
LOC: ER 00:48 → 1 SOUTH 01:00
PROVIDERS: ADMIT Internal Medicine; ATTEND Internal Medicine
DX: L03.116 Cellulitis of left lower limb (principal); E46 Unspecified protein-calorie malnutrition; L03.115 Cellulitis of right lower limb; B18.2 Chronic viral hepatitis C; F12.10 Cannabis abuse, uncomplicated; F14.10 Cocaine abuse, uncomplicated; F17.210 Nicotine dependence, cigarettes, uncomplicated; F41.9 Anxiety disorder, unspecified; K21.9 Gastro-esophageal reflux disease without esophagitis; Z80.0 Family history of malignant neoplasm of digestive organs; Z86.14 Personal history of Methicillin resistant Staphylococcus aureus infection; Z88.0 Allergy status to penicillin; Z98.51 Tubal ligation status; Z68.29 Body mass index [BMI] 29.0-29.9, adult
CPT/HCPCS: 36415; 36556; 71045; 78582; 80048; 80053; 80076; 80307; 81001; 82553; 83690; 83735; 83880; 84443; 84484; 85025; 85027; 85379; 85610; 85730; 87040; 93005; 93971; 96360; 96372; 96374; A9540; A9558; J0696; J1650; J1885; J3490; J7120; Q0162; 99285-25; G0479

== ENCOUNTER 2017-09-29 20:42 | Emergency (ER) | payer SELFPAY ==
[~2017-09-29] VITALS: Ht 170.2 cm; Wt 82.5 kg
[~2017-09-29 20:42] MED LIST changes: +CEPH-264 PO
[2017-09-29 20:47] VITALS: BP 142/80
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
[2017-09-29 21:50] LABS: BASO # 0.2 x10^3/uL (0.0-0.2); BASO % 1 % (0-3); EOS # 0.4 x10^3/uL (0.0-0.7); EOS % 3 % (0-3); LYMPH # 2.6 x10^3/uL (1.0-4.8); LYMPH % 18 % (24-48); MONO # 0.9 x10^3/uL (0.0-1.1); MONO % 6 % (0-9); NEUT % 71 % (31-73)
[2017-09-29 21:52] LABS: MEAN CORPUSCULAR HEMOGLOBIN 31 pg (25-35)
[2017-09-29 21:54] LABS: HEMATOCRIT 42.6 % (36.0-47.0); HEMOGLOBIN 14.6 g/dL (12.0-15.5); MEAN CORPUSCULAR HGB CONC 34 g/dL (31-37); MEAN CORPUSCULAR VOLUME 91 fL (79-100); PLATELET COUNT 312 x10^3/uL (140-400); RED BLOOD COUNT 4.69 x10^6/uL (3.50-5.40); RED CELL DISTRIBUTION WIDTH 13.8 % (11.5-14.5)
[2017-09-29 21:58] LABS: CALCIUM 8.6 mg/dL (8.5-10.1); CREATININE 0.8 mg/dL (0.6-1.0); POTASSIUM 3.5 mmol/L (3.5-5.1)
[2017-09-29 22:38] LABS: % BANDS 1 % (0-9); % BASOS 1 % (0-3); % EOS 1 % (0-5); % LYMPHS 20 % (24-48); % MONOS 3 % (0-10); % SEGS 74 % (35-66); PLT ESTIMATE ADEQUATE (ADEQUATE)
[2017-09-29 22:39] LABS: TOXIC VACUOLATION SLIGHT
[2017-09-29] MEDS ORDERED: CEPH-264 PO (22:52)
[2017-09-29] MEDS ORDERED: IBUP600T16 PO (22:52)
[2017-09-29] MEDS ORDERED: CEPHALEXIN 250 MG CAPSULE PO ONE (23:00)
[2017-09-29] MEDS ORDERED: IBUPROFEN 600 MG TABLET. PO ONE (23:00)
== END 2017-09-29 23:14 | disposition home or self-care (01) ==
LOC: EEVIPCON 20:42 → ER 20:42
DX: F15.10 Other stimulant abuse, uncomplicated (principal); M79.605 Pain in left leg; M79.604 Pain in right leg; M79.642 Pain in left hand; M79.641 Pain in right hand; F17.210 Nicotine dependence, cigarettes, uncomplicated; Z88.1 Allergy status to other antibiotic agents; Z88.0 Allergy status to penicillin
CPT/HCPCS: 36415; 80048; 85007; 85025; 99284

== ENCOUNTER 2017-10-17 13:08 | Emergency (ER) | payer SELFPAY ==
[~2017-10-17] VITALS: Ht 170.2 cm; Wt 72.6 kg
[~2017-10-17 13:08] MED LIST changes: +IBUP600T16 PO
[2017-10-17] MEDS ORDERED: KETOROLAC 60 MG/2 ML VIAL. IM ONE (13:15)
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
--- NOTE | 2017-10-17 13:54 | RAD ---
EXAM: Left foot and ankle, 3 views. HISTORY: Pain. COMPARISON: None. FINDINGS: Frontal, lateral and oblique views of the left foot and ankle are obtained. There are displaced and angulated fractures involving the common, third and fourth metatarsals. There is lucency at the tip of the lateral malleolus due to an osseous ridge. The ankle mortise is intact. No osteochondral lesion is seen. IMPRESSION: Mildly displaced and angled fractures involving the distal second, third and fourth metatarsals. Electronically signed by: Adela Barrios MD (10/17/2017 1:51 PM) [place] [id number]
[2017-10-17 14:13] VITALS: BP 155/101
[2017-10-17] MEDS ORDERED: HYDR-971 PO ×2 (14:13→14:16)
[2017-10-17] MEDS ORDERED: NAPR-683 PO (14:16)
[2017-10-17] MEDS ORDERED: HYDROcodone/APAP 5/325MG 1 TAB TABLET ONE (14:35)
[2017-10-17] MEDS ORDERED: HYDROcodone/APAP 5/325MG 1 TAB TABLET PO ONE (14:45)
== END 2017-10-17 14:56 | disposition home or self-care (01) ==
LOC: ER 13:08
DX: S92.322A Displaced fracture of second metatarsal bone, left foot, initial encounter for closed fracture (principal); S92.332A Displaced fracture of third metatarsal bone, left foot, initial encounter for closed fracture; S92.342A Displaced fracture of fourth metatarsal bone, left foot, initial encounter for closed fracture; F17.210 Nicotine dependence, cigarettes, uncomplicated; F15.10 Other stimulant abuse, uncomplicated; F12.10 Cannabis abuse, uncomplicated; Z71.6 Tobacco abuse counseling; Z88.1 Allergy status to other antibiotic agents; Z88.0 Allergy status to penicillin; W10.8XXA Fall (on) (from) other stairs and steps, initial encounter; Y93.02 Activity, running; Y92.89 Other specified places as the place of occurrence of the external cause; Y99.8 Other external cause status
CPT/HCPCS: 29515; 73610; 73630; 96372; 99284; J1885

== ENCOUNTER 2018-03-15 19:47 | Emergency (ER) | payer SELFPAY ==
[~2018-03-15] VITALS: Ht 170.2 cm; Wt 78.0 kg
[~2018-03-15 19:47] MED LIST changes: +HYDR-3165 PO
[2018-03-15] MEDS ORDERED: IV NORMAL SALINE 1,000ML 1,000 ML IV ONE (20:15)
--- NOTE | 2018-03-15 20:20 | PHYS DOC ---
Past History Past Medical History: Hepatitis Past Surgical History: Tubal ligation, Other Smoking: Cigarettes Alcohol Use: Occasionally Drug Use: Marijuana, Methamphetamine Adult General Chief Complaint Chief Complaint: LOWER EXT PAIN HPI HPI 42-year-old female presents with right foot pain and left lip mass. The patient has been having some purulent drainage from the wound on her right foot in the plantar arch. She states it has been intermittently draining for 2 months. She has a history of skin infections requiring IV antibiotics. Patient has a long history of drug use. Her last use of methamphetamines was yesterday. She also has a mass on the left upper lip that has been spontaneously draining. This is been there for around a month. It is painful to the touch and will not go away. Patient has not been on any antibiotics for few months. She denies fever or chills. Review of Systems Review of Systems Constitutional: Denies fever or chills [] Eyes: Denies change in visual acuity, redness, or eye pain [] HENT: Denies nasal congestion or sore throat [] Respiratory: Denies cough or shortness of breath [] Cardiovascular: No additional information not addressed in HPI [] GI: Denies abdominal pain, nausea, vomiting, bloody stools or diarrhea [] : Denies dysuria or hematuria [] Musculoskeletal: Denies back pain or joint pain [] Integument: Mass in the left upper lip, right foot mass[] Neurologic: Denies headache, focal weakness or sensory changes [] Endocrine: Denies polyuria or polydipsia [] All other systems were reviewed and found to be within normal limits, except as documented in this note. Current Medications Current Medications Current Medications Medications (Trade) Dose Ordered Sig/Char Start Time Stop Time Status Last Admin Dose Admin Sodium Chloride 1,000 ml @ 1,000 mls/hr 1X ONCE 03/15/18 20:15 03/15/18 21:14 Allergies Allergies Allergies Coded Allergies Type Severity Reaction Last Updated Verified vancomycin Allergy Severe 10/18/17 Yes Penicillins Allergy Intermediate Rash 10/18/17 No Physical Exam Physical Exam Constitutional: Well developed, well nourished, no acute distress, non-toxic appearance. [] HENT: Normocephalic, atraumatic, bilateral external ears normal, oropharynx moist, no oral exudates, nose normal. [] Eyes: PERRLA, EOMI, conjunctiva normal, no discharge. [] Neck: Normal range of motion, no tenderness, supple, no stridor. [] Cardiovascular:Heart rate regular rhythm, no murmur [] Lungs & Thorax: Bilateral breath sounds clear to auscultation [] Abdomen: Bowel sounds normal, soft, no tenderness, no masses, no pulsatile masses. [] Skin: 7 mm papule of the left upper lip with evidence of bloody drainage. No surrounding erythema or warmth. Right foot subcutaneous mass without surrounding erythema or warmth, or evidence of central bleeding.[] Back: No tenderness, no CVA tenderness. [] Extremities: No tenderness, no cyanosis, no clubbing, ROM intact, no edema. [] Neurologic: Alert and oriented X 3, normal motor function, normal sensory function, no focal deficits noted. [] Psychologic: Affect normal, judgement normal, mood normal. [] Current Patient Data Vital Signs Vital Signs Date Time Temp Pulse Resp B/P (MAP) Pulse Ox O2 Delivery O2 Flow Rate FiO2 03/15/18 20:01 98.3 95 18 99 Room Air EKG EKG [] Radiology/Procedures Radiology/Procedures [] Impressions: Preliminary Interpretation: No obvious osteomyelitis or foreign body. Course & Med Decision Making Course & Med Decision Making Pertinent Labs and Imaging studies reviewed. (See chart for details) The patient's x-rays unremarkable. Her labs are unremarkable. She was extremely difficult stick. We had to get blood with an arterial line. I will discharge her with Bactrim for 10 days to see if this improves the facial lesion. I have advised that she follow up with dermatology if it does not improve. She is stable for discharge at this time. [] Dragon Disclaimer Dragon Disclaimer This electronic medical record was generated, in whole or in part, using a voice recognition dictation system. Departure Departure: Disposition: 01 HOME, SELF-CARE Condition: STABLE Referrals: PCP,NO (PCP) Patient Instructions: Cellulitis, [id number] Scripts Sulfamethoxazole/Trimethoprim (BACTRIM DS TABLET) 1 Each Tablet 1 TAB PO BID for infection, #20 TAB Prov: DEBI KELLER DO 03/15/18 DEBI KELLER DO Mar 15, 2018 20:20
[2018-03-15 21:42] LABS: BASO # 0.2 x10^3/uL (0.0-0.2); BASO % 1 % (0-3); EOS # 0.3 x10^3/uL (0.0-0.7); EOS % 3 % (0-3); HEMATOCRIT 43.9 % (36.0-47.0); HEMOGLOBIN 14.7 g/dL (12.0-15.5); LYMPH # 2.6 x10^3/uL (1.0-4.8); LYMPH % 21 % (24-48); MEAN CORPUSCULAR HEMOGLOBIN 30 pg (25-35); MEAN CORPUSCULAR HGB CONC 33 g/dL (31-37); MEAN CORPUSCULAR VOLUME 90 fL (79-100); MONO # 0.8 x10^3/uL (0.0-1.1); MONO % 6 % (0-9); NEUT # 8.7 x10^3uL (1.8-7.7); NEUT % 70 % (31-73); PLATELET COUNT 365 x10^3/uL (140-400); RED BLOOD COUNT 4.87 x10^6/uL (3.50-5.40); RED CELL DISTRIBUTION WIDTH 14.2 % (11.5-14.5); WHITE BLOOD COUNT 12.5 x10^3/uL (4.0-11.0)
[2018-03-15] MEDS ORDERED: SULF1TAB24 PO (21:44)
[2018-03-15 21:48] LABS: ALBUMIN/GLOBULIN RATIO 0.9 (1.0-1.7); CALCIUM 8.4 mg/dL (8.5-10.1); CREATININE 1.1 mg/dL (0.6-1.0); GFR 54.7; POTASSIUM 4.1 mmol/L (3.5-5.1); TOTAL BILIRUBIN 0.2 mg/dL (0.2-1.0); TOTAL PROTEIN 6.5 g/dL (6.4-8.2)
[2018-03-15 22:18] VITALS: BP 116/60
--- NOTE | 2018-03-16 02:52 | RAD ---
Right foot x-rays 3 views HISTORY: Right foot pain, plantar foot lobe. FINDINGS: Small bone spur at the anterior tibial plafond and at the ankle. No radiopaque foreign body at the plantar foot evident. Small os trigonum posterior ankle. No fracture or dislocation or arthritic change, and no periosteal reaction or lytic bone destruction to suggest infection of the foot. IMPRESSION: Negative right foot x-rays. Electronically signed by: Darryl Streeter MD (03/16/2018 2:48 AM) [id number]
== END 2018-03-15 22:19 | disposition home or self-care (01) ==
LOC: ER 19:47
DX: M79.671 Pain in right foot (principal); R22.0 Localized swelling, mass and lump, head; R22.41 Localized swelling, mass and lump, right lower limb; F17.210 Nicotine dependence, cigarettes, uncomplicated; F12.10 Cannabis abuse, uncomplicated; F15.10 Other stimulant abuse, uncomplicated; Z88.0 Allergy status to penicillin; Z88.1 Allergy status to other antibiotic agents
CPT/HCPCS: 36415; 73630; 80053; 83605; 85025; 87040; 99284

== ENCOUNTER 2018-04-24 14:54 | Emergency (ER) | payer SELFPAY ==
[~2018-04-24] VITALS: Ht 170.2 cm; Wt 81.6 kg
[2018-04-24] MEDS ORDERED: IV NORMAL SALINE 1,000ML 1,000 ML IV SCH (15:18)
[2018-04-24 16:22] LABS: BASO % 1 % (0-3); EOS # 0.2 x10^3/uL (0.0-0.7); EOS % 2 % (0-3); HEMATOCRIT 38.7 % (36.0-47.0); HEMOGLOBIN 13.3 g/dL (12.0-15.5); LYMPH # 1.1 x10^3/uL (1.0-4.8); LYMPH % 12 % (24-48); MEAN CORPUSCULAR HEMOGLOBIN 31 pg (25-35); MEAN CORPUSCULAR HGB CONC 34 g/dL (31-37); MEAN CORPUSCULAR VOLUME 91 fL (79-100); MONO # 0.7 x10^3/uL (0.0-1.1); MONO % 7 % (0-9); NEUT # 7.7 x10^3uL (1.8-7.7); NEUT % 79 % (31-73); PLATELET COUNT 305 x10^3/uL (140-400); RED BLOOD COUNT 4.27 x10^6/uL (3.50-5.40); RED CELL DISTRIBUTION WIDTH 13.9 % (11.5-14.5); WHITE BLOOD COUNT 9.7 x10^3/uL (4.0-11.0)
--- NOTE | 2018-04-24 16:40 | RAD ---
CHEST PA LATERAL CLINICAL INDICATION: fever COMPARISON: None FINDINGS: Heart is normal in size with diffuse bilateral interstitial opacities are seen. No focal consolidation. No pneumothorax or pleural effusion. Visualized bony thorax is within normal limits. IMPRESSION: Findings suggests atypical/viral infection. Electronically signed by: Alin Garcia DO (04/24/2018 4:37 PM) [id number]
--- NOTE | 2018-04-24 16:47 | PHYS DOC ---
Past History Past Medical History: Asthma, Depression, Hepatitis Past Surgical History: Tubal ligation Smoking: Cigarettes Alcohol Use: Occasionally Drug Use: Marijuana, Methamphetamine, Opiates Adult General Chief Complaint Chief Complaint: FEVER HPI HPI Patient is a 42 year old female who presents with complaining of not feeling good and being lethargic. Patient states he had flulike symptoms last week that improved but he still has cough and congestion, nausea and vomiting and diarrhea , not feeling good, subjective fever and being lethargic. She'll complaining of headache as a constant pain and rated her pain as a severe pain without injury. Patient states he is currently treated for a skin abscess with several antibiotic and did not use any illegal drugs for the last 3 days. Patient denies suicidal and homicidal ideation. Patient is a poor historian and keeping her eyes closed but does state she drove her boyfriend after he was discharged from rehabilitation today him to the hospital even she lives in [facility]. Review of Systems Review of Systems Constitutional: Reports fever and chills Eyes: Denies change in visual acuity, redness, or eye pain [] HENT: Nasal congestion or sore throat Respiratory: Complaining of cough and shortness of breath Cardiovascular: No additional information not addressed in HPI [] GI: Denies abdominal pain, reports nausea, vomiting, diarrhea [] : Denies dysuria or hematuria [] Musculoskeletal: Denies back pain or joint pain [] Integument: Denies rash or skin lesions [] Neurologic: Reports headache, denies focal weakness or sensory changes [] Endocrine: Denies polyuria or polydipsia [] All other systems were reviewed and found to be within normal limits, except as documented in this note. Current Medications Current Medications Current Medications Medications (Trade) Dose Ordered Sig/Char Start Time Stop Time Status Last Admin Dose Admin Sodium Chloride 1,000 ml @ 1,000 mls/hr Q1H 04/24/18 15:18 04/24/18 16:17 DC 04/24/18 16:06 1,000 MLS/HR Allergies Allergies Allergies Coded Allergies Type Severity Reaction Last Updated Verified vancomycin Allergy Severe 10/18/17 Yes Penicillins Allergy Intermediate Rash 10/18/17 No Physical Exam Physical Exam Constitutional: Well nourished, mild distress, non-toxic appearance. [] HENT: Normocephalic, atraumatic, bilateral external ears normal, oropharynx moist, no oral exudates, nose normal. [] Eyes: PERRLA, EOMI, conjunctiva normal, no discharge. [] Neck: Normal range of motion, no tenderness, supple, no stridor. [] Cardiovascular:Heart rate regular rhythm, no murmur [] Lungs & Thorax: Bilateral breath sounds clear to auscultation [] Abdomen: Bowel sounds normal, soft, no tenderness, no masses, no pulsatile masses. [] Skin: Warm, dry, no erythema, no rash several old and new skin abscess. [] Back: No tenderness, no CVA tenderness. [] Extremities: No tenderness, no cyanosis, no clubbing, ROM intact, no edema. [] Neurologic: Alert and oriented X 3, normal motor function, normal sensory function, no focal deficits noted. [] Psychologic: Affect anxious, judgement normal, mood normal. [] Current Patient Data Vital Signs Vital Signs Date Time Temp Pulse Resp B/P (MAP) Pulse Ox O2 Delivery O2 Flow Rate FiO2 04/24/18 16:07 90 18 110/70 (83) 97 Room Air 04/24/18 15:02 97.2 Lab Results Laboratory Tests Test 04/24/18 15:55 White Blood Count 9.7 x10^3/uL (4.0-11.0) Red Blood Count 4.27 x10^6/uL (3.50-5.40) Hemoglobin 13.3 g/dL (12.0-15.5) Hematocrit 38.7 % (36.0-47.0) Mean Corpuscular Volume 91 fL (79-100) Mean Corpuscular Hemoglobin 31 pg (25-35) Mean Corpuscular Hemoglobin Concent 34 g/dL (31-37) Red Cell Distribution Width 13.9 % (11.5-14.5) Platelet Count 305 x10^3/uL (140-400) Neutrophils (%) (Auto) 79 % (31-73) H Lymphocytes (%) (Auto) 12 % (24-48) L Monocytes (%) (Auto) 7 % (0-9) Eosinophils (%) (Auto) 2 % (0-3) Basophils (%) (Auto) 1 % (0-3) Neutrophils # (Auto) 7.7 x10^3uL (1.8-7.7) Lymphocytes # (Auto) 1.1 x10^3/uL (1.0-4.8) Monocytes # (Auto) 0.7 x10^3/uL (0.0-1.1) Eosinophils # (Auto) 0.2 x10^3/uL (0.0-0.7) Basophils # (Auto) 0.0 x10^3/uL (0.0-0.2) EKG EKG [] Radiology/Procedures Radiology/Procedures [] Course & Med Decision Making Course & Med Decision Making Pertinent Labs and Imaging studies reviewed. (See chart for details) Evolution of patient in ER showed 42-year-old female patient with history of amphetamine abuse presented with complaining of flulike symptom and not feeding. Patient had unremarkable vital sign and labs with normal white count and lactic acid. Patient ambulated without problem. She instructed to follow-up with her primary care physician and continue current medication for skin abscess. discharge: I've spoken with the patient and/or caregivers. I've explained the patient's condition, diagnosis and treatment plan based on information available to me at this time. I've answered the patient's and/or caregivers questions and addressed any concerns. The patient and/or caregivers have a good understanding the patient's diagnosis, condition and treatment plan as can be expected at this point. Vital signs have been stabilized. The patient's condition is stable for discharge from the emergency department. The patient will pursue further outpatient evaluation with her primary care provider or other designated consulting physician as outlined in the discharge instructions. Patient and/or caregivers are agreeable to this plan of care and follow-up instructions have been explained in detail. The patient and/or caregivers have received these instructions in written format and expressed understanding of these discharge instructions. The patient and her caregivers are aware that if any significant change in condition or worsening of symptoms should prompt him to immediately return to this of the closest emergency department. If an emergent department is not readily available I would encourage him to call 911. Ann Marie Disclaimer Ann Marie Disclaimer This electronic medical record was generated, in whole or in part, using a voice recognition dictation system. Departure Departure: Impression: Primary Impression: Abscess Additional Impressions: Methamphetamine abuse Head ache Disposition: HOME, SELF-CARE (at 1724) Condition: STABLE Referrals: PCP,NO (PCP) Patient Instructions: Abscess, General Headache Without Cause, [id number], Methamphetamine Abuse, Complications, Smoking Cessation, Tips For Success Additional Instructions: Continue current medication Drink plenty of liquids Follow-up with your primary care physician in 3-5 days Return to ER if not getting better Scripts Naproxen (NAPROSYN) 500 Mg Tablet 500 MG PO BID for pain, #10 TAB Prov: SHILO DUKE MD 04/24/18 Problem Qualifiers SHILO DUKE MD Apr 24, 2018 16:47
[2018-04-24 16:52] LABS: BARBITURATES NEG (NEG); BENZODIAZEPINES NEG (NEG); CANNABINOIDS POS (NEG); COCAINE NEG (NEG); METHADONE NEG (NEG); OPIATES NEG (NEG); PHENCYCLIDINE NEG (NEG)
[2018-04-24 17:00] LABS: AMPHETAMINE/METHAMPHETAMINE POS (NEG)
[2018-04-24 17:09] LABS: BILIRUBIN,URINE NEG (NEG); CLARITY,URINE CLEAR; COLOR,URINE YELLOW; GLUCOSE,URINE NEG (NEG); NITRITE,URINE NEG (NEG); RBC,URINE OCC /HPF (0-2); UROBILINOGEN,URINE 0.2 mg/dL (0.2 mg/dL)
[2018-04-24 17:10] LABS: BACTERIA,URINE FEW /HPF (0-FEW); INFLUENZA A PATIENT NEGATIVE (NEGATIVE); INFLUENZA B PATIENT NEGATIVE (NEGATIVE); SQUAMOUS EPITHELIAL CELL,UR FEW /LPF
[2018-04-24 17:15] LABS: ALBUMIN 2.6 g/dL (3.4-5.0); ALBUMIN/GLOBULIN RATIO 0.9 (1.0-1.7); CALCIUM 8.1 mg/dL (8.5-10.1); CREATININE 0.9 mg/dL (0.6-1.0); POTASSIUM 4.2 mmol/L (3.5-5.1); TOTAL BILIRUBIN 0.1 mg/dL (0.2-1.0); TOTAL PROTEIN 5.6 g/dL (6.4-8.2)
[2018-04-24 17:25] VITALS: BP 125/73
[2018-04-24] MEDS ORDERED: NAPR-683 PO (17:26)
--- NOTE | 2018-04-24 17:30 | RAD ---
CT HEAD WO CONTRAST Clinical indications: HEADACHE COMPARISON: None available. Technique: Noncontrast axial cross sectional scanning of the head was performed. PQRS compliance Statement One or more of the following individualized dose reduction techniques were utilized for this study: 1. Automated exposure control 2. Adjustment of the mA and/or kV according to patient size 3. Use of iterative reconstruction technique Findings: No acute intracranial hemorrhage or midline shift or mass-effect or hydrocephalus or extra-axial fluid collection is seen. No focal hypodense area or sulci effacement is seen to indicate an acute infarct or edema radiographically. No skull fracture or pneumocephalus is seen. No opacification of the mastoid sinuses or the paranasal sinuses is seen. The maxillary sinuses are not completely seen in this study. Impression: No acute intracranial abnormality is seen. Electronically signed by: Chris Oswald MD (04/24/2018 5:28 PM) [facility]
== END 2018-04-24 17:30 | disposition home or self-care (01) ==
LOC: ER 14:59
DX: L02.91 Cutaneous abscess, unspecified (principal); F15.10 Other stimulant abuse, uncomplicated; R51 Headache; R11.2 Nausea with vomiting, unspecified; R19.7 Diarrhea, unspecified; J45.909 Unspecified asthma, uncomplicated; F32.9 Major depressive disorder, single episode, unspecified; F17.210 Nicotine dependence, cigarettes, uncomplicated; F12.10 Cannabis abuse, uncomplicated; F11.10 Opioid abuse, uncomplicated; Z88.1 Allergy status to other antibiotic agents; Z88.0 Allergy status to penicillin
CPT/HCPCS: 36415; 70450; 71046; 80053; 80307; 81001; 83605; 83690; 85025; 87040; 87804; 96360; 99284; G0480; J7030